=== PATIENT | male | born 1960 | race Caucasian/White ===

== ENCOUNTER 2022-07-25 12:55 | Outpatient (CLI) | payer BC ==
[~2022-07-25 12:55] MED LIST: Magnevist 469MG/ML 20 ML VIAL ONE
== END 2022-07-25 12:56 | disposition home or self-care (01) ==
LOC: CSHMRI 12:55
PROVIDERS: ATTEND Otolaryngology Plastic Surgery within the Head & Neck
DX: H91.8X3 Other specified hearing loss, bilateral (principal); R90.82 White matter disease, unspecified
CPT/HCPCS: 70553; 82565